=== PATIENT | male | born 2000 | race Hispanic/Latino ===

== ENCOUNTER 2021-11-16 10:24 | Emergency (ER) | payer SELFPAY ==
[2021-11-16] VITALS (12 sets, daily range): BP systolic 96–117; BP diastolic 42–77; PULSE 59–85; RESP 13–20; TEMP 37.2; O2SAT 87–100
--- NOTE | 2021-11-16 11:19 | PC.NURSE ---
aware that PT starting to c/o headache.
[2021-11-16 12:00] LABS: Basophils Absolute Auto 0.1 K/mm3 (0.0-0.1); Basophils Percent Auto 0.4 % (0.2-1.2); Eosinophils Absolute Auto 0.1 K/mm3 (0-0.3); Eosinophils Percent Auto 0.5 % (0-4.4); Hematocrit 52.1 % (42.0-52.0); Hemoglobin 17.3 g/dL (14.0-18.0); Immature Granulocyte Absolute 0.04 K/mm3 (0.00-0.031); Immature Granulocyte Percent A 0.3 % (0-0.5); Lymphocytes Absolute Auto 0.84 K/mm3 (0.9-3.2); Lymphocytes Percent Auto 7.3 % (18.3-44.2); Mean Corpuscular HGB Conc 33.2 g/dl (32-36); Mean Corpuscular Hemoglobin 28.7 pg (26-34); Mean Corpuscular Volume 86.5 fl (80-100); Mean Platelet Volume 10.7 fl (7.4-10.4); Monocytes Absolute Auto 0.7 K/mm3 (0.1-0.6); Monocytes Percent Auto 5.6 % (2.6-8.5); Neutrophils Absolute Auto 9.9 K/mm3 (1.3-6.7); Neutrophils Percent Auto 85.9 % (45.5-73.1); Platelet Count Result 172 k/mm3 (150-375); Red Blood Count 6.02 M/mm3 (4.6-6.20); Red Cell Distribution Width 12.1 % (11.5-14.5); White Blood Count 11.5 K/mm3 (4.5-10.0)
[2021-11-16 12:10] LABS: Alanine Aminotransferase 41 U/L (4-50); Albumin Level 5.1 g/dL (3.5-5.1); Alkaline Phosphatase 115 U/L (38-126); Anion Gap 10 mmol/L (8-16); Aspartate Amino Transferase 35 U/L (17-59); Bilirubin,Total 0.5 mg/dL (0.2-1.3); Blood Urea Nitrogen 11 mg/dL (9-20); Calcium 9.3 mg/dL (8.4-10.2); Carbon Dioxide 26 mmol/L (22-30); Chloride 105 mmol/L (98-107); Estimated CRCL calculation 137 ml/min; Estimated Glomerular Filt Rate > 60; Glucose 75 mg/dL (65-110); Potassium 4.4 mmol/L (3.4-5.0); Sodium 141 mmol/L (137-145)
[2021-11-16 12:18] LABS: Add Urine Microscopic? YES; Appearance Urine Cloudy (Clear); Bilirubin Urine Negative (Negative); Blood Urine Negative (Negative); Color Urine Yellow (Yellow); Glucose Urine UA Negative (Negative); Ketones Urine Negative (Negative); Leukocyte Esterase Ur Negative LEU/UL (Negative); Mucus Urine Rare /lpf; Nitrate Urine Negative (Negative); Protein Urine 2+ mg/dL (Negative); RBC Urine 0-2 /hpf (0-2); Urobilinogen Urine Negative mg/dL (<2.0); WBC Urine 0-3 /hpf
[2021-11-16] MEDS: levETIRAcetam 1000MG/NACL100ML 1,000 MG/100 ML BAG 400 MG IVPB (12:53)
[2021-11-16] MEDS: SODIUM CHLORIDE 0.9% IV 1,000 ML 999 ML IV CONT (13:00)
--- NOTE | 2021-11-16 13:35 | ED.SEIZURE ---
HPI - Seizure General Chief Complaint: Seizure Stated Complaint: Seizure Time Seen by Provider: 11/16/21 12:02 History of Present Illness HPI Narrative: Patient is a 21-year-old male who presents ER after having a seizure witnessed by his family. Reports he has not taken his medication since because he was choosing to have a few beers. He was diagnosed with seizures a month ago at a different hospital. He has been taking Keppra 750 mg twice a day. Reports he feels better when he takes medication has been seizure-free since then. Patient does not have a neurologist. He does not seem to realize that the Keppra actually prevents seizure activity. He has been educated about this. Patient has no other reports of pain. Reports he has not eaten today. Symptoms occurred while he was cleaning out a cooler. History obtained through video interpretive services. Related Data Home Medications Medication Instructions Recorded Confirmed levetiracetam [Keppra] PO 11/16/21 Allergies Allergy/AdvReac Type Severity Reaction Status Date / Time No Known Allergies Allergy Verified 11/16/21 10:49 Review of Systems Review of Systems: All systems reviewed & are unremarkable except as noted in HPI and below Constitutional: Constitutional: Denies chills, Denies fever(s) and Denies weakness Cardiovascular: Cardiovascular: Denies chest pain and Denies radiating jaw, neck or arm pain Respiratory: Respiratory: Denies cough, Denies dyspnea and Denies wheezing Gastrointestinal: Gastrointestinal: Denies abdominal pain, Denies nausea and Denies vomiting Neurologic: Denies headache(s), Denies focal weakness and Denies numbness Comments: Seizure PMFSH Past Medical History Medical History (Updated 11/16/21 @ 13:43 by Benito Hitchcock MD) Seizure disorder Surgical History Surgical History (Updated 11/16/21 @ 13:39 by Benito Hitchcock MD) No pertinent past surgical history Social History Social History (Updated 11/16/21 @ 13:40 by Benito Hitchcock MD) Alcohol intake: current Exam Narrative: GENERAL: Well-appearing, well-nourished, and in no acute distress. HEAD: Normocephalic, atraumatic. EYES: PERRL and EOMI. ENT: Mucous membranes moist. CHEST: Clear to auscultation. No respiratory distress. HEART: Regular rate and rhythm. Normal peripheral pulses. EXTREMITIES: Normal range of motion. No edema. SKIN: Warm, dry, no rash. Mild sunburn to upper extremities. NEURO: No focal deficits. Alert and oriented x3. PSYCH: Normal mood and affect. Course Course Emergency Course: Patient has been loaded with Keppra IV. He will be given neurology referral. He has medication at home. He has been educated not to operate a motor vehicle until 6 months seizure-free and cleared by neurology. Vital Signs Vital signs: Vital Signs Temperature 98.9 F 11/16/21 10:39 Pulse Rate 85 11/16/21 10:39 Respiratory Rate 18 11/16/21 10:39 Blood Pressure 117/77 11/16/21 10:39 Pulse Oximetry 97 11/16/21 10:39 Temperature 98.9 F 11/16/21 10:39 Pulse Rate 85 11/16/21 10:39 Respiratory Rate 18 11/16/21 10:39 Blood Pressure 117/77 11/16/21 10:39 Pulse Oximetry 97 11/16/21 11:20 MDM - Seizure Lab Data Result diagrams: 11/16/21 11:54 11/16/21 11:54 Labs: Lab Results 11/16/21 11/16/21 11/16/21 Range/Units 11:54 11:54 11:54 WBC 11.5 H (4.5-10.0) K/mm3 RBC 6.02 (4.6-6.20) M/mm3 Hgb 17.3 (14.0-18.0) g/dL Hct 52.1 H (42.0-52.0) % MCV 86.5 (80-100) fl MCH 28.7 (26-34) pg MCHC 33.2 (32-36) g/dl RDW 12.1 (11.5-14.5) % Plt Count 172 (150-375) k/mm3 MPV 10.7 H (7.4-10.4) fl Immature Gran % (Auto) 0.3 (0-0.5) % Neut % (Auto) 85.9 H (45.5-73.1) % Lymph % (Auto) 7.3 L (18.3-44.2) % [place] % (Auto) 5.6 (2.6-8.5) % Eos % (Auto) 0.5 (0-4.4) % Baso % (Auto) 0.4 (0.2-1.2) % Lymph # (Auto) 0.84
[2021-11-19 09:40] LABS: Levetiracetam Keppra <1.0 mcg/mL (12.0-46.0)
== END 2021-11-16 14:30 | disposition home or self-care (01) ==
PROVIDERS: Emergency Medicine; Emergency Provider Emergency Medicine
DX: G40.909 Epilepsy, unspecified, not intractable, without status epilepticus (principal)
CPT/HCPCS: 36415; 80053; 80177; 81001; 85025; 96365; 96366; 99284; J1953; J7030